=== PATIENT | female | born 1955 | race Two or more races ===

== ENCOUNTER 2022-04-09 14:33 | Emergency (ER) | payer OTHER ==
[~2022-04-09] VITALS: Ht 149.9 cm; Wt 65.8 kg
[2022-04-09] MEDS ORDERED: TOPROL XL200 MG PO (15:17)
[2022-04-09] MEDS ORDERED: JANUMET 50-1,01 EACH PO (15:17)
[2022-04-09] MEDS ORDERED: CHILDREN'S ASPI81 MG PO (15:17)
[2022-04-09] MEDS ORDERED: ATACAND HCT 161 EACH PO (15:17)
[2022-04-09] MEDS ORDERED: TRAZODONE HCL150 MG (15:18)
[2022-04-09] MEDS ORDERED: CLONAZEPAM0.5 M1 PO (15:18)
[2022-04-09] MEDS ORDERED: ESCITALOPRAM OX10 MG PO (15:18)
== END 2022-04-09 18:22 | disposition home or self-care (01) ==
LOC: ER 14:33
DX: M54.50 Low back pain, unspecified (principal)

== ENCOUNTER 2023-12-03 17:23 | Emergency (ER) | payer OTHER ==
[~2023-12-03] VITALS: Ht 149.9 cm; Wt 74.8 kg
[~2023-12-03 17:23] MED LIST: ATACAND HCT 161 EACH PO; CHILDREN'S ASPI81 MG PO; CLONAZEPAM0.5 M1 PO; ESCITALOPRAM OX10 MG PO; JANUMET 50-1,01 EACH PO; TOPROL XL200 MG PO; TRAZODONE HCL150 MG
[2023-12-03] MEDS ORDERED: GABAPENTIN600 MG (17:35)
[2023-12-03] MEDS ORDERED: TRIJARDY XR 121 EACH (17:35)
[2023-12-03] MEDS ORDERED: 0.9 % SODIUM CHLORIDE 250 ML IV STA (17:54)
[2023-12-03] MEDS ORDERED: 0.9 % SODIUM CHLORIDE 1,000 ML IV SCH (18:00)
[2023-12-03 18:18] LABS: HEMATOCRIT 38.4 % (36.0-45.00); HEMOGLOBIN 12.9 g/dL (12.0-15.00); MEAN CELL VOLUME 83.2 fL (80.00-100.00); MEAN CORPUSCULAR HEMOGLOBIN 27.9 pg (27.00-32.0); MEAN CORPUSCULAR HGB CONC 33.6 g/dl (32.0-36.0); PLATELET COUNT 284 K/uL (150-450); RED BLOOD COUNT 4.62 M/uL (4.00-6.00)
[2023-12-03 18:25] LABS: INR 1.04; PARTIAL THROMBOPLASTIN TIME 28.1 SECONDS (22.0-34.0); PROTHROMBIN TIME 10.9 SECONDS (9.0-11.5)
[2023-12-03] MEDS ORDERED: ONDANSETRON HCL 2 MG/ML VIAL IV STA (18:41)
[2023-12-03 18:48] LABS: BILIRUBIN TOTAL 0.58 mg/dL (0.3-1.2); CALCIUM 9.3 mg/dL (8.5-10.1); CREATININE SERUM 1.35 mg/dL (0.55-1.02); GFR 38.88; GLOBULINA 4.1 G/DL (2.4-3.5); POTASSIUM 3.49 mEq/L (3.5-5.1); TOTAL PROTEIN 7.1 gm/dL (6.4-8.2)
[2023-12-03 20:14] LABS: ABG PH 7.501 (7.35-7.45); ABG PO2 103.1 mmHg (80-100); ABG pCO2 30.9 mmHg (35-45)
[2023-12-03 20:15] LABS: BASE EXCESS 1.4 mmol/l; BICARBONATE 23.6 mmol/l (23-25); SaO2 98.5 %; Tco2 24.6 mmol/l
[2023-12-03 20:16] LABS: allen test SATISFACTORY; o2 21 %; puncture site RADIAL RIGHT
[2023-12-03 21:20] LABS: PH,URINE 5.5 (5.0-8.0); URINE APPEARANCE Clear; URINE BILIRRUBIN Negative (NEGATIVE); URINE BLOOD Trace; URINE COLOR Yellow; URINE LEUKOCYTE Negative; URINE NITRATE Negative; URINE PROTEIN Negative (NEGATIVE); URINE UROBILINOGEN 0.2 E.U./dl
[2023-12-03 21:23] LABS: URINE BACTERIA 12.5 uL (0.0-1933); URINE EPITHELIAL CELLS 10.6 uL (0.0-38.8); URINE RBC 4.4 uL (0.0-20.8); URINE WBC 2.3 uL (0.0-23.2)
[2023-12-03 21:29] LABS: URINE GLUCOSE >=1000 MG/DL (NEGATIVE)
== END 2023-12-03 21:40 | disposition home or self-care (01) ==
LOC: ER 17:24
PROVIDERS: General Practice
DX: E86.0 Dehydration (principal); R07.89 Other chest pain; Z20.822 Contact with and (suspected) exposure to COVID-19
CPT/HCPCS: 36415; 71045; 82803; 93005; 96365; 96366; 99283; J2405; J7030; J7050